=== PATIENT | male | born 1950 ===

== ENCOUNTER 2020-06-03 12:54 | Emergency (ER) | payer MEDICARE, OTHER ==
[2020-06-03] MEDS ORDERED: Acetaminophen/HYDROcodone 325-5 MG Tab ONE (13:00)
[2020-06-03] MEDS ORDERED: Ciprofloxacin 500 MG Tab ONE (13:00)
[2020-06-03] MEDS ORDERED: Ondansetron 4 MG Tab.DIS ONE (13:00)
[2020-06-03] MEDS ORDERED: metroNIDAZOLE 500 MG Tab ONE (13:00)
--- NOTE | 2020-06-03 13:50 | EDM.PDOC ---
ED HPI GENERAL MEDICAL PROBLEM - General Chief Complaint: General Stated Complaint: ABDOMINAL PAIN Time Seen by Provider: 06/03/20 13:37 Source of Information: Reports: Patient History Limitations: Reports: No Limitations - History of Present Illness INITIAL COMMENTS - FREE TEXT/NARRATIVE: 70 year old male with PMH of cardiac stents and prostate cancer, presents to ED with abdominal pain and vomiting since 2300 last night. He denies any CP, SOB, diarrhea, fevers, edema. Has tried tylenol for the pain but unable to keep down. Improves with: Reports: None Worsens with: Reports: None Associated Symptoms: Reports: No Other Symptoms ED ROS GENERAL - Review of Systems Review Of Systems: See Below Constitutional: Reports: No Symptoms HEENT: Reports: No Symptoms Respiratory: Reports: No Symptoms Cardiovascular: Reports: No Symptoms Endocrine: Reports: No Symptoms GI/Abdominal: Reports: Abdominal Pain, Nausea, Vomiting. Denies: Black Stool, Bloody Stool, Diarrhea, Hematemesis : Reports: No Symptoms. Denies: Discharge, Dysuria Musculoskeletal: Reports: No Symptoms Skin: Reports: No Symptoms Neurological: Reports: No Symptoms Psychiatric: Reports: No Symptoms ED EXAM, GENERAL - Physical Exam Exam: See Below Exam Limited By: No Limitations General Appearance: Alert, No Apparent Distress Eye Exam: Bilateral Eye: Normal Inspection Ears: Normal External Exam Nose: Normal Inspection Throat/Mouth: Normal Inspection, Normal Oropharynx, Normal Voice Head: Atraumatic Neck: Normal Inspection, Full Range of Motion Respiratory/Chest: No Respiratory Distress, Lungs Clear, Normal Breath Sounds Cardiovascular: Normal Peripheral Pulses, Regular Rate, Rhythm, No Edema, No JVD, No Murmur Peripheral Pulses: 3+: Carotid (L), Carotid (R), Radial (L), Radial (R), Dorsalis Pedis (L), Dorsalis Pedis (R) GI/Abdominal: Normal Bowel Sounds, Distended, Tender Back Exam: Normal Inspection, Full Range of Motion Extremities: Normal Inspection, Normal Range of Motion, No Pedal Edema, Normal Capillary Refill Neurological: Alert, Oriented, Normal Cognition, Normal Gait, No Motor/Sensory Deficits Psychiatric: Normal Affect, Normal Mood Skin Exam: Warm, Dry, Intact Lymphatic: No Adenopathy Course - Vital Signs Last Recorded V/S: Last Vital Signs Temp 97.3 F 06/03/20 13:46 Pulse 70 06/03/20 13:46 Resp 16 06/03/20 13:46 BP 140/63 06/03/20 13:46 Pulse Ox 97 06/03/20 13:46 - Orders/Labs/Meds Orders: Active Orders 24 hr Category Date Time Status Abdomen Pelvis wo Cont [CT] Stat Exams 06/03/20 13:50 Taken Piperacillin/Tazobactam [Zosyn] 4.5 gm Med 06/03/20 15:00 Active Sodium Chloride 0.9% [Normal Saline] 100 ml IV Q6H Medication Orders Piperacillin Sod/Tazobactam (Sod 4.5 gm/ Sodium Chloride) 100 mls @ 200 mls/hr IV Q6H KWAN Labs: Laboratory Tests 06/03/20 06/03/20 06/03/20 Range/Units 14:01 14:03 14:55 WBC 15.4 H (4.0-11.0) K/uL RBC 5.19 (4.50-6.50) M/uL Hgb 15.1 (13.0-18.0) g/dL Hct 45.1 (40.0-54.0) % MCV 87 (76-96) fL MCH 29.1 (27.0-32.0) pg MCHC 33.5 (31.0-35.0) g/dL RDW 13.9 (11.0-16.0) % Plt Count 301 (150-400) K/uL MPV 9.5 (6.0-10.0) fL Neut % (Auto) 89.5 H (45.0-70.0) % Lymph % (Auto) 3.1 L (20.0-40.0) % Granite % (Auto) 7.2 (3.0-10.0) % Eos % (Auto) 0.1 L (1.0-5.0) % Baso % (Auto) 0.1 (0.0-0.5) % Neut # (Auto) 13.79 H (2.00-7.50) K/uL Lymph # (Auto) 0.48 L (1.50-4.00) K/uL Granite # (Auto) 1.11 H (0.20-0.80) K/uL Eos # (Auto) 0.01 L (0.04-0.40) K/uL Baso # (Auto) 0.01 L (0.02-0.10) K/uL Sodium 137 (136-145) mmol/L Potassium 3.4 L (3.5-5.1) mmol/L Chloride 100 (98-107) mmol/L Carbon Dioxide 29.4 (21.0-32.0) mmol/L Anion Gap 11.0 (5.0-15.0) mmol/L BUN 24 (8-26) mg/dL Creatinine 1.16 (0.70-1.30) mg/dL Est Cr Clr Drug Dosing TNP Estimated GFR (MDRD) > 60 (>60) MLS/MIN BUN/Creatinine Ratio 20.7 (6-25) Glucose 146 H (74-100) mg/dL Calcium 9.7 (8.5-10.1) mg/dL Total Bilirubin 1.0 (0.0-1.0) mg/dL AST 21 (15-37) U/L ALT 31 (12-78) U/L Alkaline Phosphatase 66 (46-116) U/L Total Protein 7.1 (6.4-8.2) g/dL Albumin 3.5 (3.4-5.0) g/dL Globulin 3.6 (2.2-4.2) g/dL Albumin/Globulin Ratio 1.0 (0.8-2.0) Lipase 74 (73-393) U/L Urine Color Urine Appearance (CLEAR) Urine pH (5.0-8.0) Ur Specific [place] (1.003-1.030) Urine Protein (NEGATIVE) mg/dL Urine Glucose (UA) (NEGATIVE) mg/dL Urine Ketones (NEGATIVE) mg/dL Urine Occult Blood (NEGATIVE) Urine Nitrite (NEGATIVE) Urine Bilirubin (NEGATIVE) Urine Urobilinogen (0.2-1.0) E.U./dL Ur Leukocyte Esterase (NEGATIVE) Urine RBC /HPF Urine WBC Urine Bacteria /HPF Urine Mucus /HPF SARS-CoV-2 RNA (YVONNE) (NEGATIVE) 06/03/20 06/03/20 Range/Units 15:10 15:20 WBC (4.0-11.0) K/uL RBC (4.50-6.50) M/uL Hgb (13.0-18.0) g/dL Hct (40.0-54.0) % MCV (76-96) fL MCH (27.0-32.0) pg MCHC (31.0-35.0) g/dL RDW (11.0-16.0) % Plt Count (150-400) K/uL MPV (6.0-10.0) fL Neut % (Auto) (45.0-70.0) % Lymph % (Auto) (20.0-40.0) % Granite % (Auto) (3.0-10.0) % Eos % (Auto) (1.0-5.0) % Baso % (Auto) (0.0-0.5) % Neut # (Auto) (2.00-7.50) K/uL Lymph # (Auto) (1.50-4.00) K/uL Granite # (Auto) (0.20-0.80) K/uL Eos # (Auto) (0.04-0.40) K/uL Baso # (Auto) (0.02-0.10) K/uL Sodium (136-145) mmol/L Potassium (3.5-5.1) mmol/L Chloride (98-107) mmol/L Carbon Dioxide (21.0-32.0) mmol/L Anion Gap (5.0-15.0) mmol/L BUN (8-26) mg/dL Creatinine (0.70-1.30) mg/dL Est Cr Clr Drug Dosing Estimated GFR (MDRD) (>60) MLS/MIN BUN/Creatinine Ratio (6-25) Glucose (74-100) mg/dL Calcium (8.5-10.1) mg/dL Total Bilirubin (0.0-1.0) mg/dL AST (15-37) U/L ALT (12-78) U/L Alkaline Phosphatase (46-116) U/L Total Protein (6.4-8.2) g/dL Albumin (3.4-5.0) g/dL Globulin (2.2-4.2) g/dL Albumin/Globulin Ratio (0.8-2.0) Lipase (73-393) U/L Urine Color Yellow Urine Appearance Clear (CLEAR) Urine pH 6.0 (5.0-8.0) Ur Specific [place] >= 1.030 (1.003-1.030) Urine Protein 100 H (NEGATIVE) mg/dL Urine Glucose (UA) 100 H (NEGATIVE) mg/dL Urine Ketones 80 H (NEGATIVE) mg/dL Urine Occult Blood Small H (NEGATIVE) Urine Nitrite Negative (NEGATIVE) Urine Bilirubin Small H (NEGATIVE) Urine Urobilinogen 1.0 (0.2-1.0) E.U./dL Ur Leukocyte Esterase Negative (NEGATIVE) Urine RBC 10-20 H /HPF Urine WBC Not Reportable Urine Bacteria Few /HPF Urine Mucus Few /HPF SARS-CoV-2 RNA (YVONNE) Negative (NEGATIVE) Meds: Medications Generic Name Dose Route Start Last Admin Trade Name Freq PRN Reason Stop Dose Admin Piperacillin Sod/Tazobactam 100 mls @ 200 mls/hr 06/03/20 15:00 Sod 4.5 gm/ Sodium Chloride IV Q6H KWAN Discontinued Medications Generic Name Dose Route Start Last Admin Trade Name Freq PRN Reason Stop Dose Admin Fentanyl 50 mcg 06/03/20 13:52 06/03/20 14:00 Sublimaze IVPUSH 06/03/20 13:53 50 mcg ONETIME ONE Administration Ondansetron HCl 4 mg 06/03/20 13:52 06/03/20 14:00 Zofran IVPUSH 06/03/20 13:53 4 mg ONETIME ONE Administration Departure - Departure Time of Disposition: 17:45 Disposition: Home, Self-Care 01 Condition: Good Clinical Impression: Gallstones, Thickening of wall of gallbladder Leukocytosis Qualifiers: Leukocytosis type: unspecified Qualified Code(s): D72.829 - Elevated white blood cell count, unspecified - Discharge Information *PRESCRIPTION DRUG MONITORING PROGRAM REVIEWED*: Not Applicable *COPY OF PRESCRIPTION DRUG MONITORING REPORT IN PATIENT ILA: Not Applicable Instructions: Cholelithiasis Forms: ED Department Discharge Additional Instructions: Take the zofran as needed for nausea. Take the norco as needed for pain. Start the antibiotics flagyl and cipro and take as directed. Clear liquids tonight until midnight, then nothing to eat or drink in anticipation of surgery tomorrow. Follow up at [facility] [phone] tomorrow with Dr. Singleton with general surgery. Return to ED for any increased or new concerning symptoms. Sepsis Event Note (ED) - Focused Exam Vital Signs: Vital Signs Temp Pulse Resp BP Pulse Ox 06/03/20 13:46 97.3 F 70 16 140/63 97 - My Orders Last 24 Hours: My Active Orders 06/03/20 13:50 Abdomen Pelvis wo Cont [CT] Stat 06/03/20 15:00 Piperacillin/Tazobactam [Zosyn] 4.5 gm Sodium Chloride 0.9% [Normal Saline] 100 ml IV Q6H - Assessment/Plan Last 24 Hours: My Active Orders 06/03/20 13:50 Abdomen Pelvis wo Cont [CT] Stat 06/03/20 15:00 Piperacillin/Tazobactam [Zosyn] 4.5 gm Sodium Chloride 0.9% [Normal Saline] 100 ml IV Q6H Assessment:: 1428 Called [facility] for patient transfer and diagnostic US, spoke with Dr Bennett in the ED, he is happy to accept patient and order US, and would like to run the case by general surgery. Spoke with Dr. Singleton of general surgery, he is aware of patient's CT results and elevated WBC, he does not think an US is necessary, he would like the patient sent home with pain medications and antibiotics and for him to follow up in the general surgery clinic tomorrow. 1445 patient started on IV zosyn, he will have a ride pick him up at 1800. He was given some sprite to drink and has tolerated. Plan: Patient to have clear liquids until midnight, then NPO is hopes of surgery tomorrow in [facility]. He will call Dr. Singleton in the AM at [phone]. Tonight he will start flagyl and cipro. He will also be given zofran and norco. He verbalized understanding of these instructions. He will return to ED for any increased or new concerning symptoms.
[2020-06-03] MEDS ORDERED: Ondansetron 4 MG/2 ML SDV IVPUSH ONE (13:52)
[2020-06-03] MEDS ORDERED: fentaNYL 100 MCG/2 ML SDV IVPUSH ONE (13:52)
[2020-06-03] MEDS ORDERED: Piperacillin/Tazobactam 4.5 GM in Sodium Chloride 0.9% 100 ML IV SCH (15:00)
--- NOTE | 2020-06-03 19:08 | CT ---
DATE OF SERVICE: 06/03/2020 CLINICAL DATA: Abdominal pain. UNENHANCED ABDOMEN AND PELVIC CT: Multislice acquisition through the abdomen and pelvis without IV or oral contrast was performed. No priors. There are mild atelectatic changes of the dependent portion of both lower lungs and in both lung bases. The lung bases are otherwise clear. The heart size is normal. There are moderate coronary artery calcifications. There is diffuse fatty infiltration of the liver. No focal hepatic lesions. The gallbladder is distended. There are multiple gallstones noted within the dependent gallbladder. The gallbladder wall is thickened and there is pericholecystic fluid. Cholecystitis is suspected. The spleen appears normal. The pancreas is atrophic, otherwise unremarkable. The right and left adrenals appear normal. There is atrophy of the left kidney. The right and left kidneys otherwise appear normal. No nephrocalcinosis or nephrolithiasis. No hydronephrosis or hydroureter. The bladder is fluid filled. It is normal. No evidence of appendicitis. There is a moderate amount of stool noted in the right colon. No free air. No free fluid. No dilated loops of bowel. No adenopathy. No aortic aneurysm. There is a fat containing umbilical hernia. No other significant findings. IMPRESSION: Cholelithiasis. Gallbladder wall thickening with pericholecystic fluid suspicious for acute cholecystitis. Other findings as discussed above. The patient's physician was notified of the findings by telephone and by virtual radiologic preliminary radiology report. [id number]
== END 2020-06-03 17:50 | disposition home or self-care (01) ==
LOC: LB.ED 12:54
DX: K80.80 Other cholelithiasis without obstruction (principal); D72.829 Elevated white blood cell count, unspecified; Z20.828 Contact with and (suspected) exposure to other viral communicable diseases
CPT/HCPCS: 36415; 74176; 80053; 81001; 83690; 85025; 96365; 96375; 99284-25; A9270-GY; J2405; J2543; J3010; U0002